=== PATIENT | female | born 1955 | race Caucasian/White ===

== ENCOUNTER 2018-12-03 20:22 | Emergency (ER) | payer MEDICARE, OTHER, MEDICAID ==
[2018-12-03] MEDS: HYDROCODONE/APAP (5/325) TAB PO (22:00)
[2018-12-03] MEDS: IBUPROFEN 200 MG TAB PO (22:00)
[2018-12-03] MEDS: ACETAMINOPHEN 325 MG TAB PO (22:02)
== END 2018-12-04 00:29 | disposition home or self-care (01) ==
LOC: FTE 12-04 00:29
DX: S20.212A Contusion of left front wall of thorax, initial encounter (principal); S43.402A Unspecified sprain of left shoulder joint, initial encounter; E03.9 Hypothyroidism, unspecified; W18.39XA Other fall on same level, initial encounter; Y92.9 Unspecified place or not applicable
CPT/HCPCS: 71100; 73030; 99284-25